=== PATIENT | male | born 1930 | race Caucasian/White ===

== ENCOUNTER 2016-08-07 18:12 | Emergency (ER) | payer MEDICARE ==
--- NOTE | 2016-08-26 21:34 | ER ---
ADMIT: 08/07/2016 RM/LOC: ER [facility] MR#: [id number] [address] [address] [place] [address] Emergency Room Report SEX: M AGE: 85 : 1930 DATE: 08/07/2016 HISTORY OF PRESENT ILLNESS: An 85-year-old gentleman comes to the Emergency Department with abdominal pain, vomiting, fever, chills, sudden onset this afternoon. See T-sheet for remainder of history and physical. His white count was 11.5, hemoglobin of 13.1, potassium 3.6, BUN 27, glucose 150, and creatinine 1.8. Cardiac markers within normal limits. UA was significant for 5 wbc's. Procalcitonin 0.20. Lactic acid 3.3. A CT scan of his abdomen revealed diverticulitis and discussed the need for hospitalization. The patient adamantly refused, subsequently sent home AMA. He was given prescription for Zofran, Cipro, and Flagyl. Encouraged to return to the Emergency Department if he starts vomiting or unable to stay at home. Ronal Chavarria MD/ maurilio JOB #: [id number] CC: Derick Talley MD, Attending Physician [facility] Phys[facility], Family Physician
== END 2016-08-07 22:23 | disposition left against medical advice (07) ==
LOC: ER 18:12
DX: K57.92 Diverticulitis of intestine, part unspecified, without perforation or abscess without bleeding (principal); E11.9 Type 2 diabetes mellitus without complications; I10 Essential (primary) hypertension; Z88.5 Allergy status to narcotic agent; Z79.82 Long term (current) use of aspirin; Z79.899 Other long term (current) drug therapy